=== PATIENT | female | born 1950 | race Caucasian/White ===

== ENCOUNTER → 2016-07-01 | Outpatient (CLI) | payer MEDICARE | LOC: MC.RAD 07:00 | DX: Z12.31 Encounter for screening mammogram for malignant neoplasm of breast (principal) ==

== ENCOUNTER → 2017-07-03 | Outpatient (CLI) | payer MEDICARE, OTHER | LOC: MC.RAD 07:40 | DX: Z12.31 Encounter for screening mammogram for malignant neoplasm of breast (principal) ==

== ENCOUNTER → 2018-07-18 | Outpatient (CLI) | payer MEDICARE, OTHER | LOC: MC.RAD 07:31 | DX: Z12.31 Encounter for screening mammogram for malignant neoplasm of breast (principal) ==

== ENCOUNTER → 2019-07-31 | Outpatient (CLI) | payer MEDICARE, OTHER | LOC: MC.RAD 08:11 | DX: Z12.31 Encounter for screening mammogram for malignant neoplasm of breast (principal) ==

== ENCOUNTER → 2020-08-03 | Outpatient (CLI) | payer MEDICARE, OTHER ==
[~2020-08-03] MED LIST: FOSAMAX 70MG TA70 MG PO; MASON NATURAL S1 CAP PO; PRINIVIL10 MG PO; XALATAN EYE DROPS OU
== END ==
LOC: MC.RAD 08:00
DX: Z12.31 Encounter for screening mammogram for malignant neoplasm of breast (principal); R92.0 Mammographic microcalcification found on diagnostic imaging of breast

== ENCOUNTER → 2020-08-10 | Outpatient (CLI) | payer MEDICARE, OTHER | LOC: MC.RAD | DX: R92.0 Mammographic microcalcification found on diagnostic imaging of breast (principal) ==

== ENCOUNTER → 2020-08-19 | Outpatient (CLI) | payer MEDICARE | LOC: MC.RAD 06:56 | DX: R92.0 Mammographic microcalcification found on diagnostic imaging of breast (principal) | CPT/HCPCS: 30634 ==

== ENCOUNTER → 2021-04-13 | Outpatient (CLI) | payer MEDICARE ==
[2021-04-13] VITALS (19 sets, daily range): BP systolic 108–148; BP diastolic 56–81; PULSE 76–99; TEMP 98
[~2021-04-13] VITALS: Ht 157.5 cm; Wt 55.1 kg
[2021-04-13 10:25] LABS: INR 1.1 (0.8-3.0); PROTHROMBIN TIME 11.8 SECONDS (9.7-12.8)
--- NOTE | 2021-04-13 10:45 | NUR ---
pt to ct per ambulation. Pt into ct and placed in supine position. Monitors applied.
--- NOTE | 2021-04-13 11:35 | NUR ---
Specimens obtained and placed in formalin by Dr Valles. Specimen labeled.
--- NOTE | 2021-04-13 11:36 | NUR ---
GEL FOAM PLACED IN SITE BY DR MCKEON.
--- NOTE | 2021-04-13 12:45 | NUR ---
Pt denies pain. Pt given juice, water and muffin to eat. Pt playing on phone and watching TV.
--- NOTE | 2021-04-13 13:20 | NUR ---
Discharge instructions gone over with pt. Pt verbalized understanding of instructions. Copy given to pt.
== END ==
LOC: COL.RAD 09:51
PROVIDERS: Radiology Radiation Oncology
DX: Z51.0 Encounter for antineoplastic radiation therapy (principal); C50.411 Malignant neoplasm of upper-outer quadrant of right female breast